=== PATIENT | male | born 1990 | race Caucasian/White ===

== ENCOUNTER 2022-03-29 05:50 | Emergency (ER) | payer OTHER ==
[~2022-03-29] VITALS: Ht 172.7 cm; Wt 108.9 kg
[2022-03-29 06:50] LABS: RED BLOOD COUNT 4.91 M/UL (4.20-5.50); WHITE BLOOD COUNT 10.7 K/UL (4.5-11.0)
[2022-03-29 07:08] LABS: BUN/CREATININE RATIO 7 (0-10)
[2022-03-29] MEDS ORDERED: AMOX TR-K CLV1 EAC4 PO (11:46)
== END 2022-03-29 11:58 | disposition left against medical advice (07) ==
LOC: ER1 05:50
PROVIDERS: Family Medicine
DX: T81.49XA Infection following a procedure, other surgical site, initial encounter (principal); L03.818 Cellulitis of other sites; R00.0 Tachycardia, unspecified; Z20.822 Contact with and (suspected) exposure to COVID-19
CPT/HCPCS: 70487; 71045; 80053; 81001; 83605; 83690; 85025; 85652; 86140; 87040; 93005; 96361; 96374; 99283; J0295; Q9967; U0002